=== PATIENT | male | born 1945 | race Caucasian/White ===

== ENCOUNTER 2023-12-28 16:32 | Outpatient (REF) | payer MEDICARE, MEDICAID, SELFPAY ==
--- OUTSIDE RECORDS SUMMARY | 2023-12-28 16:37 | XMS_ITS | Continuity of Care Document ---
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 Name Role Phone Landeros, Nicole Keren Primary Care Physician Encounter [facility] Date(s): 09/19/23 - 09/19/[address] [id number] Encounter Diagnosis Scalp laceration(Discharge Diagnosis) - 09/19/23 Skin tear of forearm without complication(Discharge Diagnosis) - 09/19/23 Discharge Disposition: [facility] Facility Attending Physician: Gato Fan MD Admitting Physician: Gato Fan MD Allergies, Adverse Reactions, Alerts Substance Reaction Severity Status pravastatin Unknown Active Actos Unknown Active Vytorin Unknown Active dilTIAZem Unknown Active Assessment and Plan Extracted from: Title:ED Provider Note Author:Shweta Mijares Ma, MD Date:09/19/23 Assessment/Plan 1.??Scalp laceration??S01.01XA Ordered: Discharge Patient, 09/19/23 13:34:00 EDT, Constant Indicator ?? 2.??Skin tear of forearm without complication??S51.819A Ordered: Discharge Patient, 09/19/23 13:34:00 EDT, Constant Indicator ?? Patient Education Laceration Care, Adult Medications atorvastatin 40 mg oral tablet 40 mg = 1 tab, Oral, every evening, # 30 tab, 0 Refill(s) Start Date: 09/19/23 Status: Ordered ferrous sulfate 325 mg (65 mg elemental iron) oral delayed release tablet 325 mg = 1 tab, Oral, Daily, # 30 tab, 0 Refill(s) Start Date: 09/19/23 Status: Ordered Flomax 0.4 mg oral capsule 0.4 mg = 1 cap, Oral, every night at bedtime, # 30 cap, 0 Refill(s) Start Date: 09/19/23 Status: Ordered HumaLOG 100 units/mL injectable solution See Instructions, sliding scale AC and HS aggressive scale: 50-200 = 2units 210-250- = 4units 251-300 = 6units 301-350 = 8units 351-400 = 10 units, 0 Refill(s) Start Date: 09/19/23 Status: Ordered nitrofurantoin macrocrystals 100 mg oral capsule 100 mg = 1 cap, Oral, BID, # 40 cap, 0 Refill(s) Start Date: 09/19/23 Stop Date: 09/29/23 Status: Ordered ramelteon 8 mg oral tablet 8 mg = 1 tab, Oral, every night at bedtime, 0 Refill(s) Start Date: 09/19/23 Status: Ordered Vital Signs Most recent to oldest [Reference Range]: 1 2 3 Temperature Temporal Artery [36-38 Deg C] 36.9 Deg C (09/19/23 11:05 AM) Peripheral Pulse Rate [60-100 bpm] 66 bpm (09/19/23 1:50 PM) 50 bpm *LOW* (09/19/23 1:24 PM) 55 bpm *LOW* (09/19/23 12:36 PM) Heart Rate Monitored [60-100 bpm] 70 bpm (09/19/23 1:50 PM) 53 bpm *LOW* (09/19/23 1:24 PM) 63 bpm (09/19/23 12:36 PM) Respiratory Rate [12-24 br/min] 20 br/min (09/19/23 1:50 PM) 15 br/min (09/19/23 1:24 PM) 17 br/min (09/19/23 12:36 PM) Blood Pressure [90-140/60-90 mmHg] 148/77mmHg *HI* (09/19/23 1:50 PM) 135/66mmHg (09/19/23 1:24 PM) 156/62mmHg *HI* (09/19/23 12:36 PM) Mean Arterial Pressure, Cuff [65-140 mmHg] 101 mmHg (09/19/23 1:50 PM) 89 mmHg (09/19/23 1:24 PM) 93 mmHg (09/19/23 12:36 PM) Weight 65.5 kg (09/19/23 11:05 AM) Weight Dosing 65.500 kg (09/19/23 11:05 AM) Body Mass Index Estimated 23.21 kg/m2 (09/19/23 11:05 AM) Height/Length Estimated 168 cm (09/19/23 11:05 AM) Social History Social History Type Response Smoking Status Not obtained due to cognitive impairment entered on: 09/19/23 Sex Hospital Discharge Instructions Patient Education 09/19/2023 12:34:29 Laceration Care, Adult Laceration Care, Adult A laceration is a cut that may go through all layers of the skin and into the tissue that is right under the skin. Some lacerations heal on their own. Others need to be closed with stitches (sutures), aleja, skin adhesive strips, or skin glue. Proper care of a laceration reduces the risk for infection, helps the laceration heal better, and may prevent scarring. General tips ??? Keep the wound clean and dry. ??? Do not scratch or pick at the wound. ??? Wash your hands with soap and water for at least 20 seconds before and after touching your wound or changing your bandage (dressing). If soap and water are not available, use hand waste disposal attendant. ??? Do not usedisinfectants or antiseptics, such as rubbing alcohol, to clean your wound unless told by your health care provider. ??? If you were given a dressing, you should change it at least once a day, or as told by your health care provider. You should also change it if it becomes wet or dirty. How to care for your laceration If sutures or aleja were used: ??? Keep the wound completely dry for the first 24 hours, or as told by your health care provider. After that time, you may shower or bathe. Do not soak your wound in water until after the sutures orstaples have been removed. ??? Clean the wound once each day, or as told by your health care provider. To do this: ??? Wash the wound with soap and water. ??? Rinse the wound with water to remove all soap. ??? Pat the wound dry with a clean towel. Do not rub the wound. ??? After cleaning the wound, apply a thin layer of antibiotic ointment, other topical ointments, or a non-adherent dressing as told by your health care provider. This will help prevent infection andkeep the dressing from sticking to the wound. ??? Have the sutures or aleja removed as told by your health care provider. Do not remove suturesor aleja yourself. If skin adhesive strips were used: ??? Do not get the skin adhesive strips wet. You may shower or bathe, but keep the wound dry. ??? If the wound gets wet, pat it dry with a clean towel. Do not rub the wound. ??? Skin adhesive strips fall off on their own. If adhesive strip edges start to loosen and curl up, you may trim the loose edges. Do not remove adhesive strips completely unless your health care provider tells you to do that. If skin glue was used: ??? You may shower or bathe, but try to keep the wound dry. Do not soak the wound in water. ??? After showering or bathing, pat the wound dry with a clean towel. Do not rub the wound. ??? Do not do any activities that will make you sweat a lot until the skin glue has fallen off. ??? Do not apply liquid, cream, or ointment medicine to the wound while the skin glue is in place. Doing this may loosen the film before the wound has healed. ??? If a dressing is placed over the wound, do not apply tape directly over the skin glue. Doing this may cause the glue to be pulled off before the wound has healed. ??? Do not pick at the glue. Skin glue usually remains in place for 5???10 days and then falls off the skin. Follow these instructions at home: Medicines ??? Take mezl-jjm-aayxjnq and prescription medicines only as told by your health care provider. ??? If you were prescribed an antibiotic medicine or ointment, take or apply it as told by your health care provider. Do not stop using it even if your condition improves. Managing pain and swelling ??? If directed, put ice on the injured area. To do this: ??? Put ice in a plastic bag. ??? Place a towel between your skin and the bag. ??? Leave the ice on for 20 minutes, 2???3 times a day. ??? Remove the ice if your skin turns bright red. This is very important. If you cannot feel pain, heat, or cold, you have a greater risk of damage to the area. ??? Raise (elevate) the injured area above the level of your heart while you are sitting or lying down for the first 24???48 hours after the laceration is repaired. General instructions ??? Avoid any activity that could cause your wound to reopen. ??? Check your wound every day for signs of infection. Watch for: ??? More redness, swelling, or pain. ??? Fluid or blood. ??? Warmth. ??? Pus or a bad smell. ??? Keep all follow-up visits. This is important. Contact a health care provider if: ??? You received a tetanus shot and you have swelling, severe pain, redness, or bleeding at the injection site. ??? Your closed wound breaks open. ??? You have any of these signs of infection: ??? More redness, swelling, or pain around your wound. ??? Fluid or blood coming from your wound. ??? Warmth coming from your wound. ??? Pus or a bad smell coming from your wound. ??? A fever. ??? You notice something coming out of the wound, such as wood or glass. ??? Your pain is not controlled with medicine. ??? You notice a change in the color of your skin near your wound. ??? You need to change the dressing often. ??? You develop a new rash. ??? You have numbness around the wound. Get help right away if: ??? You develop severe swelling around the wound. ??? Your pain suddenly increases and is severe. ??? You develop painful lumps near the wound or on skin anywhere else on your body. ??? You have a red streak going away from your wound. ??? The wound is on your hand or foot, and you cannot properly move a finger or toe. ??? The wound is on your hand or foot, and you notice that your fingers or toes look pale or bluish. Summary ??? A laceration is a cut that may go through all layers of the skin and into the tissue that is right under the skin. ??? Some lacerations heal on their own. Others need to be closed with stitches (sutures), aleja, skin adhesive strips, or skin glue. ??? Proper care of a laceration reduces the risk of infection, helps the laceration heal better, and may prevent scarring. This information is not intended to replace advice given to you by your health care provider. Make sure you discuss any questions you have with your health care provider. Document Revised: 06/17/2021 Document Reviewed: 06/17/2021 [employer] Patient Education ?? 2022 [employer]. Pharmacology Progress note * Carmelita James: PERFORM Event Display: Pharmacy Progress Note Authored Date: [id number] Pharmacy Progress Note done by Carmelita James verified with MAR sent from [facility] Pt did have am meds today. thx Carmelita James [facility] Electronically Signed on 09/19/2023 13:27 EDT Carmelita James Physician Emergency department Note * Shweta Mijares MD: PERFORM Event Display: ED Note Physician Authored Date: [id number] SERENE HOLCOMB :1945 Age:78 years Sex:Male Visit Date:09/19/2023 Primary Care Physician: Nicole Landeros NP Basic Information Time Seen: Shweta Mijares MD / 09/19/2023 11:11 Chief Complaint Witnessed fall while attempting to walk outside, poor hisotirna, unsure why he fell. Lac on back ofhead. Paperwork from [facility] pt does no take blood thinners. No c-spine tenderness. [facility] repots A+Ox1 baseline, alert to self and sitation now. History Of Present Illness: This is a 78 year old gentleman??who is a [place] resident??alert and oriented x 1 at baseline,??presents to the ED for evaluation after a fall. ??and now has aPer report the fall was witnessed??by the??staff.?? The patient was attempting to walk outside when he??tripped and fell down??laceration??on the back of his head. The patient does corroborate the story with me,??he says he got up right away with the help of someone. ??He says he walks with a walker??but tells him all the time that he does not needed.?? He is having some??local pain at the site of his laceration, he denies pain anywhere else. ? Physical exam: ?? GEN: well developed and well nourished HEAD: There is a??3 cm??linear laceration over the??occiput EYES: pupils round reactive to light, conjunctiva clear, extraocular movements intact, no raccoons eyes ENT: no fluid in external acoustic canals, no hemotympanum, no england's sign, nares patent, oropharynx clear NECK: no JVD, midline trachea, no cervical spine tenderness,??neck cleared with Nexus criteria HEART: regular rate and rhythm LUNGS: CTAB CHEST: chest wall non-tender, no bruising/deformity ABD: no [place]ard's or Krish's sign, soft, non tender, no rebound or guarding PELVIS: stable to rock BACK: no step offs or deformities, T-L spine non tender : deferred Extremities: There is a skin tear over the left forearm??with multiple bruises,??there is full range of motion actively??without any pain,??though the??extension lacks about 5 degrees.?? There is no tenderness topalpation??over??the other 4 extremities. NEURO: CNII-XII grossly intact, no sensory deficits ? MDM ?? Thorough chart review performed, nursing triage note reviewed, vitals reviewed ?? The patient is well and non toxic appearing with reassuring VS ?? Plan: Imaging, lac??repair ? Imaging results X-ray pelvis without any acute fracture or dislocation X-ray elbow with no acute fracture or dislocation X-ray chest with no acute intrathoracic findings Noncontrast head CT 1.?Age-indeterminate minimally displaced bilateral nasal bone fractures. 2.?No acute intracranial abnormality.? No evidence of recent nasal trauma, the frx are likely chronic.? The laceration over the occiput was closed??using 3 aleja, the patient tolerated the pressure well The patient's pain was controlled with Tylenol ?? Plan to continue Tylenol as an outpatient, staple removal??in 7 to 10 days Discharge instructions and return precautions discussed, all questions answered. Physical Exam Vitals & Measurements T:??36.9?C ??(Temporal Artery)?? HR:??50??(Peripheral)?? HR:??53??(Monitored)?? RR:??15?? BP:??135/66?? SpO2:??100%?? HT:??168??cm?? WT:??65.5??kg?? BMI:??23.21?? Pain Score:??2?? O2 Therapy:??Room air?? Procedure Laceration Repair Staple Closure Procedure Note Location: _Occiput Laceration length/type: _3 cm Staple type/size: _Standard size??3 Number of aleja: _ The wound was cleansed with normal saline irrigation under pressure. Wound exploration reveals no muscle, tendon, nerve injury or foreign body. Wound was repaired under sterile technique with surgical skin aleja. Patient tolerated the procedure well without complications. No Qualifying Data Assessment/Plan 1.??Scalp laceration??S01.01XA Ordered: Discharge Patient, 09/19/23 13:34:00 EDT, Constant Indicator ?? 2.??Skin tear of forearm without complication??S51.819A Ordered: Discharge Patient, 09/19/23 13:34:00 EDT, Constant Indicator ?? Patient Education Laceration Care, Adult Medication Reconciliation Unchanged atorvastatin (atorvastatin 40 mg oral tablet)1 tab Oral (given by mouth) every evening. ?? ferrous sulfate (ferrous sulfate 325 mg (65 mg elemental iron) oral delayed release tablet)1 tab Oral (given by mouth) every day. ?? insulin lispro (HumaLOG 100 units/mL injectable solution)sliding scale AC and HS aggressive scale: 50-200 = 2units 210-250- = 4units 251-300 = 6units 301-350 = 8units 351-400 = 10 units. ?? nitrofurantoin (nitrofurantoin macrocrystals 100 mg oral capsule)1 Capsules Oral (given by mouth) 2times a day for 10 Days. ?? ramelteon (ramelteon 8 mg oral tablet)1 tab Oral (given by mouth) every night at bedtime. ?? tamsulosin (Flomax 0.4 mg oral capsule)1 Capsules Oral (given by mouth) every night at bedtime. Problem List/Past Medical History Ongoing No qualifying data Historical No qualifying data Medication Administration Given acetaminophen, 650 mg, Oral Allergies Actos Vytorin dilTIAZem pravastatin Social History Electronic Cigarette/Vaping Electronic Cigarette Use: Never. Tobacco Not obtained due to cognitive impairment Tobacco Use:. Electronically Signed on 09/19/2023 13:37 EDT Shweta Mijares MD Emergency department Discharge instructions * Shweta Mijares MD: PERFORM Event Display: ED Discharge Information Authored Date: [id number] SERENE HOLCOMB :1945 Age:78 years Sex:Male Visit Date:09/19/2023 Primary Care Physician: Nicole Landeros [facility] [employer] ADMINISTRATOR Discharge Instructions We would like to thank you for allowing us to assist you with your healthcare needs. The following includes patient education materials and information regarding your injury/illness. Diagnosis from Today's Visit Scalp laceration Skin tear of forearm without complication Discharge Vitals Temperature??(Temporal Artery) 98.4 ??F (36.9 ??C) Heart Rate??(Peripheral) 50 Heart Rate??(Monitored) 53 Respiratory Rate?? 15 Blood Pressure?? 135/66?? SpO2?? 100% Height?? 66.14 in (168 cm) Weight?? 144.43 lb (65.5 kg) BMI?? 23.21 Allergies Actos Vytorin dilTIAZem pravastatin What to Do Next Instructions from Your Care Team Please keep area clean and dry at all times. In 24 hours please remove bandage and start cleaning daily with soap and water. Change dressing daily.?? For suture removal, please follow up with your primary care provider or return to the ED in??7-10 days. For your forearm skin tear, please continue usual wound care. Note that scaring is inevitable and can be minimized with avoiding sun exposure. Monitor wound and return to the Emergency Department for any increased redness of the skin around it, warmth of the skin, increased swelling, drainage, increased pain, fever, or any other concern.?? You were treated today on an emergency basis; it may be stephenson to contact your primary care provider to notify them of your visit today. You may have been referred to your regular doctor or a specialist, please follow up as instructed. If your condition worsens or you can't get in to see the doctor, contact the Emergency Department. Medications What How Much When Instructions Next Dose Unchanged atorvastatin (atorvastatin 40 mg oral tablet) 1 tab Oral (given by mouth) Every evening Unchanged ferrous sulfate (ferrous sulfate 325 mg (65 mg elemental iron) oral delayed release tablet) 1 tab Oral (given by mouth) Every day Unchanged insulin lispro (HumaLOG 100 units/ mL injectable solution) See instructions sliding scale AC and HS aggressive scale: 50-200 = 2units 210-250- = 4units 251-300 = 6units 301-350 = 8units 351-400 = 10 units ?? Unchanged nitrofurantoin (nitrofurantoin macrocrystals 100 mg oral capsule) 1 Capsules Oral (given by mouth) 2 times a day Duration: 10 Days Unchanged ramelteon (ramelteon 8 mg oral tablet) 1 tab Oral (given by mouth) Every night at bedtime Unchanged tamsulosin (Flomax 0.4 mg oral capsule) 1 Capsules Oral (given by mouth) Every night at bedtime Education Materials Laceration Care, Adult A laceration is a cut that may go through all layers of the skin and into the tissue that is right under the skin. Some lacerations heal on their own. Others need to be closed with stitches (sutures), aleja, skin adhesive strips, or skin glue. Proper care of a laceration reduces the risk for infection, helps the laceration heal better, and may prevent scarring. General tips ? Keep the wound clean and dry. ? Do not scratch or pick at the wound. ? Wash your hands with soap and water for at least 20 seconds before and after touching your wound orchanging your bandage (dressing). If soap and water are not available, use hand waste disposal attendant. ? Do not usedisinfectants or antiseptics, such as rubbing alcohol, to clean your wound unless told byyour health care provider. ? If you were given a dressing, you should change it at least once a day, or as told by your health care provider. You should also change it if it becomes wet or dirty. How to care for your laceration If sutures or aleja were used: ? Keep the wound completely dry for the first 24 hours, or as told by your health care provider. After that time, you may shower or bathe. Do not soak your wound in water until after the sutures or aleja have been removed. ? Clean the wound once each day, or as told by your health care provider. To do this: ? Wash the wound with soap and water. ? Rinse the wound with water to remove all soap. ? Pat the wound dry with a clean towel. Do not rub the wound. ? After cleaning the wound, apply a thin layer of antibiotic ointment, other topical ointments, or a non-adherent dressing as told by your health care provider. This will help prevent infection and keep the dressing from sticking to the wound. ? Have the sutures or aleja removed as told by your health care provider. Do not remove sutures or aleja yourself. If skin adhesive strips were used: ? Do not get the skin adhesive strips wet. You may shower or bathe, but keep the wound dry. ? If the wound gets wet, pat it dry with a clean towel. Do not rub the wound. ? Skin adhesive strips fall off on their own. If adhesive strip edges start to loosen and curl up, you may trim the loose edges. Do not remove adhesive strips completely unless your health care provider tells you to do that. If skin glue was used: ? You may shower or bathe, but try to keep the wound dry. Do not soak the wound in water. ? After showering or bathing, pat the wound dry with a clean towel. Do not rub the wound. ? Do not do any activities that will make you sweat a lot until the skin glue has fallen off. ? Do not apply liquid, cream, or ointment medicine to the wound while the skin glue is in place. Doing this may loosen the film before the wound has healed. ? If a dressing is placed over the wound, do not apply tape directly over the skin glue. Doing this may cause the glue to be pulled off before the wound has healed. ? Do not pick at the glue. Skin glue usually remains in place for 5???10 days and then falls off the skin. Follow these instructions at home: Medicines ? Take viml-rbw-kuezrsc and prescription medicines only as told by your health care provider. ? If you were prescribed an antibiotic medicine or ointment, take or apply it as told by your health care provider. Do not stop using it even if your condition improves. Managing pain and swelling ? If directed, put ice on the injured area. To do this: ? Put ice in a plastic bag. ? Place a towel between your skin and the bag. ? Leave the ice on for 20 minutes, 2???3 times a day. ? Remove the ice if your skin turns bright red. This is very important. If you cannot feel pain, heat, or cold, you have a greater risk of damage to the area. ? Raise (elevate) the injured area above the level of your heart while you are sitting or lying down for the first 24???48 hours after the laceration is repaired. General instructions ? Avoid any activity that could cause your wound to reopen. ? Check your wound every day for signs of infection. Watch for: ? More redness, swelling, or pain. ? Fluid or blood. ? Warmth. ? Pus or a bad smell. ? Keep all follow-up visits. This is important. Contact a health care provider if: ? You received a tetanus shot and you have swelling, severe pain, redness, or bleeding at the injection site. ? Your closed wound breaks open. ? You have any of these signs of infection: ? More redness, swelling, or pain around your wound. ? Fluid or blood coming from your wound. ? Warmth coming from your wound. ? Pus or a bad smell coming from your wound. ? A fever. ? You notice something coming out of the wound, such as wood or glass. ? Your pain is not controlled with medicine. ? You notice a change in the color of your skin near your wound. ? You need to change the dressing often. ? You develop a new rash. ? You have numbness around the wound. Get help right away if: ? You develop severe swelling around the wound. ? Your pain suddenly increases and is severe. ? You develop painful lumps near the wound or on skin anywhere else on your body. ? You have a red streak going away from your wound. ? The wound is on your hand or foot, and you cannot properly move a finger or toe. ? The wound is on your hand or foot, and you notice that your fingers or toes look pale or bluish. Summary ? A laceration is a cut that may go through all layers of the skin and into the tissue that is right under the skin. ? Some lacerations heal on their own. Others need to be closed with stitches (sutures), aleja, skinadhesive strips, or skin glue. ? Proper care of a laceration reduces the risk of infection, helps the laceration heal better, and may prevent scarring. This information is not intended to replace advice given to you by your health care provider. Make sure you discuss any questions you have with your health care provider. Document Revised: 06/17/2021 Document Reviewed: 06/17/2021 Elsevier Patient Education ?? 2022 [employer] Patient/Health Unit Clerk Signature Patient Name:SERENE HOLCOMB I have received this information and my questions have been answered. Patient/Health Unit Clerk Name: Patient/Health Unit Clerk Signature: Relationship to Patient: Witness Name/Signature: Date: Electronically Signed on: 09/19/2023 13:35 EDTSigned by:[facility] Emergency department Note * Shilpa Cai P: PERFORM Event Display: ED Notes Authored Date: [id number] * Shilpa Cai P: PERFORM Event Display: ED Notes Authored Date: [id number] Patient Care team information Care Team Personnel Name: Nicole Landeros NP Position: No Access Member Role: Primary Care Physician Address: Address: [address] Care Team Related Persons Name: POLINA HOLCOMB
[2023-12-28 16:55] LABS: Abs Immature Grans 0.02 10^3/uL (0.0-0.06); Absolute Basophil Count 0.05 10^3/uL (0.0-0.2); Absolute Eosinophil Count 0.14 10^3/uL (0.0-0.7); Absolute Lymphocyte Count 1.68 10^3/uL (1.2-3.4); Absolute Monocyte Count 0.49 10^3/uL (0.1-0.8); Absolute Neutrophil Count 2.81 10^3/uL (1.2-6.7); Eosinophils % 2.7 %; HCT 36.2 % (40.0-50.0); Immature Grans % 0.4 %; Lymphocytes % 32.4 %; MCH 27.7 pg (27.0-33.0); MCHC 33.1 % (32.0-36.0); MCV 84 fL (80-95); MPV 10.4 fL (8.0-11.0); Monocytes % 9.4 %; Neutrophils % 54.1 %; Platelet Count 313 10^3/uL (130-400); RBC 4.33 10^6/uL (4.36-5.78); RDW 13.2 % (11.8-14.1); RDW-SD 40.4 fL; WBC 5.19 10^3/uL (4.4-10.8)
[2023-12-28 16:57] LABS: Anion Gap 6.8 mmol/L (3-11); BUN 22 mg/dL (7-18); CO2 31.2 mmol/L (21.0-32.0); CREATININE 1.2 mg/dL (0.70-1.30); Calcium 9.1 mg/dL (8.5-10.1); Chloride 101 mmol/L (98-107); Estimated GFR 62.67 (mL/min/1.73m2); Glucose 139 mg/dL (74-106); Potassium 4.6 mmol/L (3.5-5.1); Sodium 139 mmol/L (136-145)
== END 2023-12-28 16:33 | disposition home or self-care (01) ==
LOC: LBN 16:32
PROVIDERS: Visit Provider Family Medicine
DX: E87.5 Hyperkalemia (principal); E11.8 Type 2 diabetes mellitus with unspecified complications; E43 Unspecified severe protein-calorie malnutrition
CPT/HCPCS: 80048; 85025

== ENCOUNTER 2024-02-22 12:19 | Outpatient (REF) | payer MEDICARE, MEDICAID, SELFPAY ==
[2024-02-22 13:00] LABS: Abs Immature Grans 0.01 10^3/uL (0.0-0.06); Absolute Basophil Count 0.03 10^3/uL (0.0-0.2); Absolute Eosinophil Count 0.12 10^3/uL (0.0-0.7); Absolute Lymphocyte Count 1.15 10^3/uL (1.2-3.4); Absolute Monocyte Count 0.33 10^3/uL (0.1-0.8); Absolute Neutrophil Count 4.28 10^3/uL (1.2-6.7); Basophils % 0.5 %; HCT 39.8 % (40.0-50.0); HGB 13.3 g/dL (13.5-17.5); Immature Grans % 0.2 %; Lymphocytes % 19.4 %; MCH 28.4 pg (27.0-33.0); MCHC 33.4 % (32.0-36.0); MCV 85 fL (80-95); MPV 10.7 fL (8.0-11.0); Monocytes % 5.6 %; Neutrophils % 72.3 %; Platelet Count 213 10^3/uL (130-400); RBC 4.69 10^6/uL (4.36-5.78); RDW 13.9 % (11.8-14.1); RDW-SD 42.6 fL; WBC 5.92 10^3/uL (4.4-10.8)
[2024-02-22 13:11] LABS: ALT 53 U/L (16-63); AST 29 U/L (15-37); Albumin 3.5 g/dL (3.4-5.0); Alkaline Phosphatase 99 U/L (46-116); Anion Gap 13.5 mmol/L (3-11); BUN 27 mg/dL (7-18); CO2 25.5 mmol/L (21.0-32.0); CREATININE 1.5 mg/dL (0.70-1.30); Calcium 8.9 mg/dL (8.5-10.1); Chloride 104 mmol/L (98-107); Estimated GFR 47.95 (mL/min/1.73m2); Glucose 444 mg/dL (74-106); Potassium 4.9 mmol/L (3.5-5.1); Sodium 143 mmol/L (136-145); Total Protein 7.1 g/dL (6.4-8.2)
[2024-02-22 22:15] LABS: Estimated Average Glucose 214 mg/dL; Hemoglobin A1C 9.1 % (<5.7)
== END 2024-02-22 12:20 | disposition home or self-care (01) ==
LOC: LBN 12:19
PROVIDERS: Visit Provider Family Medicine
DX: E11.8 Type 2 diabetes mellitus with unspecified complications (principal); M62.81 Muscle weakness (generalized); E87.5 Hyperkalemia
CPT/HCPCS: 80053; 83036; 85025

== ENCOUNTER 2024-04-08 10:20 | Emergency (ER) | payer MEDICARE, MEDICAID, SELFPAY ==
[2024-04-08 10:29] VITALS: BP 149/74; PULSE 80; RESP 20; TEMP 36.9; O2SAT 98
[2024-04-08 10:40] VITALS: BP 149/74; PULSE 80; RESP 20; TEMP 36.9; O2SAT 98
--- NOTE | 2024-04-08 10:45 | RT.EKG_ITS ---
APPROVED REPORT Exam: Resting ECG Reason for Exam: [facility] Patient Location: E HR:69 bpm ECG Measurements Heart Rate 69 AXIS CO 185 P 26 QRSd 87 QRS 5 QT 391 T 36 QTc 420 Conclusion Sinus rhythm...normal P axis, V-rate 60- 99 I have reviewed and interpreted ECG and agree with software generated interpretation.
[2024-04-08 11:05] LABS: BE (Venous) 6 mmol/L (-2-3); HCO3 (Venous) 32 mmol/L (23-28); O2 Sat (Venous) 64 %; TCO2 (Venous) 29 mmol/L (24-29); pCO2 (Venous) 55 mmHg (41-51); pH (Venous) 7.37 (7.31-7.41); pO2 (Venous) 35 mmHg
[2024-04-08 11:06] LABS: Abs Immature Grans 0.02 10^3/uL (0.0-0.06); Absolute Basophil Count 0.04 10^3/uL (0.0-0.2); Absolute Eosinophil Count 0.11 10^3/uL (0.0-0.7); Absolute Lymphocyte Count 1.08 10^3/uL (1.2-3.4); Absolute Monocyte Count 0.41 10^3/uL (0.1-0.8); Absolute Neutrophil Count 4.75 10^3/uL (1.2-6.7); Basophils % 0.6 %; Eosinophils % 1.7 %; HCT 42.9 % (40.0-50.0); Immature Grans % 0.3 %; Lymphocytes % 16.8 %; MCH 28.1 pg (27.0-33.0); MCHC 32.6 % (32.0-36.0); MCV 86 fL (80-95); MPV 9.6 fL (8.0-11.0); Monocytes % 6.4 %; Neutrophils % 74.2 %; Platelet Count 296 10^3/uL (130-400); RBC 4.99 10^6/uL (4.36-5.78); RDW 13.2 % (11.8-14.1); RDW-SD 40.8 fL; WBC 6.41 10^3/uL (4.4-10.8)
[2024-04-08 11:11] VITALS: RESP 14
[2024-04-08] MEDS: LORazepam 1 MG TAB PO (11:24)
[2024-04-08] MEDS: OLANZapine ODT 5 MG TAB PO (11:24)
[2024-04-08 11:27] LABS: ALT 26 U/L (16-63); AST 17 U/L (15-37); Albumin 3.4 g/dL (3.4-5.0); Alkaline Phosphatase 109 U/L (46-116); Anion Gap 9.5 mmol/L (3-11); BUN 20 mg/dL (7-18); Bilirubin, Total 0.77 mg/dL (0.2-1.0); CO2 31.5 mmol/L (21.0-32.0); CREATININE 1.4 mg/dL (0.70-1.30); Calcium 9.5 mg/dL (8.5-10.1); Chloride 98 mmol/L (98-107); Estimated GFR 52.09 (mL/min/1.73m2); Glucose 443 mg/dL (74-106); Potassium 4.4 mmol/L (3.5-5.1); Sodium 139 mmol/L (136-145); Total Protein 8.3 g/dL (6.4-8.2)
[2024-04-08 11:37] LABS: TSH (W/Ref FT4) 3.87 uIU/mL (0.36-3.74)
[2024-04-08 11:45] VITALS: BP 126/88; PULSE 76; RESP 20; O2SAT 100
[2024-04-08 12:41] LABS: Bilirubin Negative (Negative); Blood Negative (Negative); Clarity Clear (Clear); Glucose >=1000 mg/dL (Negative); Ketones 15 mg/dL (Negative); Leukocyte Esterase Negative (Negative); Nitrite Negative (Negative); Specific Gravity 1.015 (1.005-1.025); Urobilinogen 0.2 mg/dL (Up to 0.2); pH 6.5 (5-8)
[2024-04-08] MEDS: Insulin REGULAR-Human 100 UNITS/ML UNIT 10 UNITS SC (13:23)
[2024-04-08 13:33] LABS: Bacteria Few HPF (Negative); C & S Indicated? No; Casts Negative LPF (Negative); Crystals Negative HPF (Negative); Epithelial Cells Moderate HPF (Negative); Mucus Negative (Negative); Other Cells Negative (Negative); RBC 0-2 HPF (0-2); WBC 0-2 HPF (0-5)
[2024-04-08 15:23] VITALS: BP 158/68; PULSE 67; RESP 16; O2SAT 99
--- NOTE | 2024-04-08 15:30 | ED.GENADUL_ITS ---
Discharge Plan Disposition Patient Disposition: Senior Living Facility(SNF) Condition: Stable Discharge Details Clinical Impression: Dementia Primary Care Provider: Kat Blankenship ED Provider: Jagjit Small Home Meds and New Rx's Prescriptions: New olanzapine 5 mg tablet 5 mg PO DAILY 30 Days Qty: 30 0RF Continued bisacodyl [Dulcolax (bisacodyl)] 10 mg suppository 10 mg [place] DAILY PRN insulin glargine [Basaglar KwikPen U-100 Insulin] 100 unit/mL (3 mL) insulin pen 25 unit subcut DAILY insulin lispro [Admelog SoloStar U-100 Insulin] 100 unit/mL insulin pen 1 sliding scale dose subcut USEASDIRECTD Rx Instructions: SS before meals 200-249=3U, 250-299=5u,300-349=7U,350-400=9u,401-500=11u contact MD if glucose higher than 500. mirtazapine 30 mg tablet,disintegrating 30 mg PO QHS Discharge Instructions Instructions: Dementia (including Alzheimer disease), Olanzapine Additional Instructions: You were seen in the emergency department for agitated dementia. We found no reason to keep your transfer to a psychiatric facility, we are [facility] and recommend that you take 1 tablet of medication called olanzapine that we gave you here that seem to help with your symptoms, I would encourage you to continue taking your insulin as you have high blood sugar without evidence of diabetic ketoacidosis today. Please do not hesitate to return to the emergency department with any emergent concerns. Referrals: Kat Blankenship [Primary Care Provider] - Discharge Data Discharge Date/Time-TO BE ENTERED AT DEPARTURE: 04/08/24 17:23 HPI General Date/Time Provider Initiated Documentation: 04/08/24 10:30 . HPI Narrative: This 78-year-old male presents with report of just homicidal ideation from the snf. He reportedly was making threatening statements when they tried to change his clothing today. Patient has a known history of dementia and diabetes but has been refusing his medications at home. Patient is unable to give me any history but denies any pain complaints. History is obtained from police and snf. Related Data Home Medications ?Medication ?Instructions ?Recorded ?Confirmed bisacodyl 10 mg rectal suppository 10 mg [place] DAILY PRN 04/08/24 04/08/24 (Dulcolax (bisacodyl)) insulin glargine 100 unit/mL (3 25 unit subcut DAILY 04/08/24 04/08/24 mL) subcutaneous pen (Basaglar KwikPen U-100 Insulin) insulin lispro 100 unit/mL 1 sliding scale dose subcut 04/08/24 04/08/24 subcutaneous pen (Admelog SoloStar USEASDIRECTD U-100 Insulin lispro) mirtazapine 30 mg disintegrating 30 mg PO QHS 04/08/24 04/08/24 tablet olanzapine 5 mg tablet 5 mg PO DAILY agitation 30 days 04/08/24 #30 tabs Previous Rx's ?Medication ?Instructions ?Recorded olanzapine 5 mg tablet 5 mg PO DAILY agitation 30 days 04/08/24 #30 tabs Allergies Allergy/AdvReac Type Severity Reaction Status Date / Time diltiazem Allergy Unknown Unknown Verified 04/08/24 10:46 ezetimibe (From Vytorin) Allergy Unknown Unknown Verified 04/08/24 10:46 pioglitazone (From Actos) Allergy Unknown Unknown Verified 04/08/24 10:46 pravastatin Allergy Unknown Unknown Verified 04/08/24 10:46 simvastatin (From Vytorin) Allergy Unknown Unknown Verified 04/08/24 10:46 General Stated Complaint: GenMedical HEIDI: 3 Exam Narrative Exam Narrative: Alert and oriented 78-year-old male presenting confused no visible sign of trauma, pupils equal round reactive to light and accommodation, lungs clear to auscultation, cardiac rate rhythm regular, no abdominal tenderness, ambulatory around room with steady gait, tangential, perseverating, 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 continuously of 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 war experiences, legs with excoriations and erythema, warm to touch, no drainage, venous stasis Course Vital Signs Vital signs: Vital Signs Temperature 36.9 C 04/08/24 10:29 Pulse 80 04/08/24 10:29 Respiratory Rate 20 04/08/24 10:29 Blood Pressure 149/74 H 04/08/24 10:29 Pulse Oximetry 98 04/08/24 10:29 Temperature 36.9 C 04/08/24 10:40 Temperature Source Temporal Artery Scan 04/08/24 10:40 Pulse 67 04/08/24 15:23 Respiratory Rate 16 04/08/24 15:23 Respiratory Effort Normal, Non-Labored 04/08/24 11:11 Respiratory Depth Normal 04/08/24 11:11 Respiratory Pattern Normal 04/08/24 11:11 Blood Pressure 158/68 H 04/08/24 15:23 Blood Pressure Position Sitting 04/08/24 10:40 Pulse Oximetry 99 04/08/24 15:23 Oxygen Delivery Method Room Air 04/08/24 15:23 Oxygen Flow Rate 0 04/08/24 15:23 Pain Level 0 04/08/24 10:40 Lab/Test Results Lab/Test Results: Laboratory Tests Range/Units 04/08/24 04/08/24 10:59 12:29 WBC (4.4-10.8) 10^3/uL 6.41 RBC (4.36-5.78) 10^6/uL 4.99 Hgb (13.5-17.5) g/dL 14.0 Hct (40.0-50.0) % 42.9 MCV (80-95) fL 86 MCH (27.0-33.0) pg 28.1 MCHC (32.0-36.0) % 32.6 RDW (11.8-14.1) % 13.2 Plt Count (130-400) 10^3/uL 296 MPV (8.0-11.0) fL 9.6 Immature Gran % % 0.3 Neutrophils % % 74.2 Lymphocytes % % 16.8 Monocytes % % 6.4 Eosinophils % % 1.7 Basophils % % 0.6 Nucleated RBC % (0.0-0.3) % 0.0 Absolute Neutrophils (1.2-6.7) 10^3/uL 4.75 Absolute Lymphocytes (1.2-3.4) 10^3/uL 1.08 L Absolute Monocytes (0.1-0.8) 10^3/uL 0.41 Absolute Eosinophils (0.0-0.7) 10^3/uL 0.11 Absolute Basophils (0.0-0.2) 10^3/uL 0.04 VBG pH (7.31-7.41) 7.37 VBG pCO2 (41-51) mmHg 55 H VBG pO2 mmHg 35 VBG HCO3 (23-28) mmol/L 32 H VBG Total CO2 (24-29) mmol/L 29 VBG O2 Saturation % 64 VBG Base Excess (-2-3) mmol/L 6 H Sodium (136-145) mmol/L 139 Potassium (3.5-5.1) mmol/L 4.4 Chloride (98-107) mmol/L 98 Carbon Dioxide (21.0-32.0) mmol/L 31.5 Anion Gap (3-11) mmol/L 9.5 BUN (7-18) mg/dL 20 H Creatinine (0.70-1.30) mg/dL 1.4 H Est GFR (CKD-EPI 2020) (mL/min/1.73m2) 52.09 Glucose (74-106) mg/dL 443 H Calcium (8.5-10.1) mg/dL 9.5 Total Bilirubin (0.2-1.0) mg/dL 0.77 AST (15-37) U/L 17 ALT (16-63) U/L 26 Alkaline Phosphatase (46-116) U/L 109 Total Protein (6.4-8.2) g/dL 8.3 H Albumin (3.4-5.0) g/dL 3.4 TSH (0.36-3.74) uIU/mL 3.87 H Free T4 (0.76-1.46) ng/dL 0.90 Urine Color (Yellow) Yellow Urine Clarity (Clear) Clear Urine pH (5-8) 6.5 Ur Specific [place] (1.005-1.025) 1.015 Urine Protein (Neg-Trace) mg/dL 30 H Urine Ketones (Negative) mg/dL 15 H Urine Blood (Negative) Negative Urine Nitrite (Negative) Negative Urine Bilirubin (Negative) Negative Urine Urobilinogen (Up to 0.2) mg/dL 0.2 Ur Leukocyte Esterase (Negative) Negative Urine RBC (0-2) HPF 0-2 Urine WBC (0-5) HPF 0-2 Ur Epithelial Cells (Negative) HPF Moderate Urine Crystals (Negative) HPF Negative Urine Bacteria (Negative) HPF Few Urine Casts (Negative) LPF Negative Urine Mucus (Negative) Negative Urine Other (Negative) Negative Ur Culture Indicated? No Urine Glucose (Negative) mg/dL >=1000 H Medical Decision Making 78-year-old male presenting slightly agitated but redirectable alert, given Zyprexa and Ativan secondary to mild agitation, no homicidality or suicidality during today's presentation. EKG and diagnostic blood work including urinalysis do not show evidence of acute abnormality. I see no clear obvious infectious etiology of patient's complaints his advance directives indicate that he wants comfort focused treatment only and no antibiotics. I spoke with Catherine watson nt's niece after calling [facility] who did not return the phone call and at this time we will abide by patient's advanced directive wishes. Patient is pending [facility] human services assessment. I feel like patient would benefit from a psychiatric assessment for medication control should he need it secondary to agitation with advancing dementia however at time of my assessment patient is not endorsing suicidality or homicidality I think is stable for return to the skilled rehabilitation center. Patient's blood sugar is elevated, reportedly been refusing his insulin for 7 days which technically is his right. He was amenable to insulin here in the emergency department and we did give 10 units. Blood sugars 338 reassessment. There is no evidence of DKA and I see no clear indication to give additional insulin at this time. Care will be transitioned pending disposition and likely return to rehabilitation center after mental health consultation. Quality:SDOH Health Related Social Needs: No Data to Display PFSH All Active Problems (Updated 04/08/24 @ 16:49 by MYRANDA Richardson) Dementia (Chronic) Social History Smoking risk assessment performed?: No Details: Pt unable to answer above questions at this time 04/08/24 Do you feel safe at home: Yes Do you feel safe in your relationship?: Yes
[2024-04-08 15:57] VITALS: RESP 16
--- NOTE | 2024-04-08 16:46 | ED.PROG_ITS ---
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 Not in DKA today. Medical Records Medical records reviewed: Yes I reviewed the patient's medical records. Lab Data Lab results reviewed: Yes I reviewed the patient's lab results. Labs: Laboratory Tests Range/Units 04/08/24 04/08/24 10:59 12:29 WBC (4.4-10.8) 10^3/uL 6.41 RBC (4.36-5.78) 10^6/uL 4.99 Hgb (13.5-17.5) g/dL 14.0 Hct (40.0-50.0) % 42.9 MCV (80-95) fL 86 MCH (27.0-33.0) pg 28.1 MCHC (32.0-36.0) % 32.6 RDW (11.8-14.1) % 13.2 Plt Count (130-400) 10^3/uL 296 MPV (8.0-11.0) fL 9.6 Immature Gran % % 0.3 Neutrophils % % 74.2 Lymphocytes % % 16.8 Monocytes % % 6.4 Eosinophils % % 1.7 Basophils % % 0.6 Nucleated RBC % (0.0-0.3) % 0.0 Absolute Neutrophils (1.2-6.7) 10^3/uL 4.75 Absolute Lymphocytes (1.2-3.4) 10^3/uL 1.08 L Absolute Monocytes (0.1-0.8) 10^3/uL 0.41 Absolute Eosinophils (0.0-0.7) 10^3/uL 0.11 Absolute Basophils (0.0-0.2) 10^3/uL 0.04 VBG pH (7.31-7.41) 7.37 VBG pCO2 (41-51) mmHg 55 H VBG pO2 mmHg 35 VBG HCO3 (23-28) mmol/L 32 H VBG Total CO2 (24-29) mmol/L 29 VBG O2 Saturation % 64 VBG Base Excess (-2-3) mmol/L 6 H Sodium (136-145) mmol/L 139 Potassium (3.5-5.1) mmol/L 4.4 Chloride (98-107) mmol/L 98 Carbon Dioxide (21.0-32.0) mmol/L 31.5 Anion Gap (3-11) mmol/L 9.5 BUN (7-18) mg/dL 20 H Creatinine (0.70-1.30) mg/dL 1.4 H Est GFR (CKD-EPI 2020) (mL/min/1.73m2) 52.09 Glucose (74-106) mg/dL 443 H Calcium (8.5-10.1) mg/dL 9.5 Total Bilirubin (0.2-1.0) mg/dL 0.77 AST (15-37) U/L 17 ALT (16-63) U/L 26 Alkaline Phosphatase (46-116) U/L 109 Total Protein (6.4-8.2) g/dL 8.3 H Albumin (3.4-5.0) g/dL 3.4 TSH (0.36-3.74) uIU/mL 3.87 H Free T4 (0.76-1.46) ng/dL 0.90 Urine Color (Yellow) Yellow Urine Clarity (Clear) Clear Urine pH (5-8) 6.5 Ur Specific [place] (1.005-1.025) 1.015 Urine Protein (Neg-Trace) mg/dL 30 H Urine Ketones (Negative) mg/dL 15 H Urine Blood (Negative) Negative Urine Nitrite (Negative) Negative Urine Bilirubin (Negative) Negative Urine Urobilinogen (Up to 0.2) mg/dL 0.2 Ur Leukocyte Esterase (Negative) Negative Urine RBC (0-2) HPF 0-2 Urine WBC (0-5) HPF 0-2 Ur Epithelial Cells (Negative) HPF Moderate Urine Crystals (Negative) HPF Negative Urine Bacteria (Negative) HPF Few Urine Casts (Negative) LPF Negative Urine Mucus (Negative) Negative Urine Other (Negative) Negative Ur Culture Indicated? No Urine Glucose (Negative) mg/dL >=1000 H Quality:SDOH Health Related Social Needs: No Data to Display Discharge Plan Disposition Patient Disposition: [facility]) Condition: Stable Discharge Details Clinical Impression: Dementia Primary Care Provider: Kat Blankenship ED Provider: Jagjit Small Home Meds and New Rx's Prescriptions: New olanzapine 5 mg tablet 5 mg PO DAILY 30 Days Qty: 30 0RF Continued bisacodyl [Dulcolax (bisacodyl)] 10 mg suppository 10 mg [place] DAILY PRN insulin glargine [Basaglar KwikPen U-100 Insulin] 100 unit/mL (3 mL) insulin pen 25 unit subcut DAILY insulin lispro [Admelog SoloStar U-100 Insulin] 100 unit/mL insulin pen 1 sliding scale dose subcut USEASDIRECTD Rx Instructions: SS before meals 200-249=3U, 250-299=5u,300-349=7U,350-400=9u,401-500=11u contact MD if glucose higher than 500. mirtazapine 30 mg tablet,disintegrating 30 mg PO QHS Discharge Instructions Instructions: Dementia (including Alzheimer disease), Olanzapine Additional Instructions: You were seen in the emergency department for agitated dementia. We found no reason to keep your transfer to a psychiatric facility, we are [facility] to [facility] and recommend that you take 1 tablet of medication called olanzapine that we gave you here that seem to help with your symptoms, I would encourage you to continue taking your insulin as you have high blood sugar without evidence of diabetic ketoacidosis today. Please do not hesitate to return to the emergency department with any emergent concerns. Referrals: Kat Blankenship [Primary Care Provider] - Discharge Data Discharge Date/Time-TO BE ENTERED AT DEPARTURE: 04/08/24 17:23
== END 2024-04-08 17:23 | disposition skilled nursing facility (03) ==
PROVIDERS: Physician Assistant; Emergency Provider Physician Assistant; PCP Family Medicine
DX: F03.911 Unspecified dementia, unspecified severity, with agitation (principal); E11.65 Type 2 diabetes mellitus with hyperglycemia; Z79.4 Long term (current) use of insulin
CPT/HCPCS: 00123; 36415; 80053; 82805; 82962; 93005; 99284; 81003; 81015; 84439; 84443; 85025; 93010; J1815

== ENCOUNTER 2024-04-10 16:40 | Emergency (ER) | payer MEDICARE, MEDICAID, SELFPAY ==
--- NOTE | 2024-04-10 16:30 | DI.CT_ITS ---
Exam(s) CT HEAD CERVICAL SPINE WO EXAM: CT HEAD CERVICAL SPINE WO CLINICAL HISTORY: fall, hit head. TECHNIQUE: Imaging Protocol: Axial computed tomography images with coronal and sagittal reformatted images were created and reviewed COMPARISON: No exams were available for comparison FINDINGS: BRAIN: There are no skull fractures nor fluid in the visualized paranasal sinuses. In the intracranial compartment there is abnormal asymmetric hypodensity in the right frontal lobe co nsistent with prior infarct. No mass effect nor shift of midline structures. Also evidence of previ ous infarct in the anterior aspect of the left occipital lobe. In the right middle cranial fossa there is some increased density peripherally. However, this is pro bably artifact and there is mild movement tear. CERVICAL SPINE: There is no evidence of fracture nor listhesis. No significant prevertebral soft tissue swelling. There is chronic disc space narrowing at C5-6 level as well as anterior osseous lipping at this level . Posterior bony ridging also noted at this level. Other disc spaces exhibit normal height. There are no obvious degenerative changes in the facet joints. There is no significant facet joint malalignment. No significant osseous lesions evident. 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 No skull fractures. No evidence of cervical spine fracture, malalignment, nor acute compromise of the cervical spinal can al. Chronic degenerative disc disease C5-6 level RADIATION DOSE DELIVERED: 1,181.49mGy.cm Total DLP DATA REPOSITORY: All CT scans at this facility are submitted to the National Radiology Data Registry (NRDR) Dose Index Registry (DIR) with the [employer] ([employer]). RADIATION OPTIMIZATION: All CT scans at this facility use at least one of these dose optimization te chniques: automated exposure control; mA and/or kV adjustment per patient size (includes targeted exa ms where dose is matched to clinical indication); or iterative reconstruction.
[2024-04-10 16:38] VITALS: BP 205/43; PULSE 66; RESP 14; TEMP 36.6; O2SAT 99
--- NOTE | 2024-04-10 17:21 | W.ED.GENAD ---
Discharge Plan Disposition Patient Disposition: Home Condition: Good Discharge Details Clinical Impression: Fall Primary Care Provider: Kat Blankenship ED Provider: Jagjit Duarte Home Meds and New Rx's Prescriptions: No Action bisacodyl [Dulcolax (bisacodyl)] 10 mg suppository 10 mg PA DAILY PRN insulin glargine [Basaglar KwikPen U-100 Insulin] 100 unit/mL (3 mL) insulin pen 25 unit subcut DAILY insulin lispro [Admelog SoloStar U-100 Insulin] 100 unit/mL insulin pen 1 sliding scale dose subcut USEASDIRECTD Rx Instructions: SS before meals 200-249=3U, 250-299=5u,300-349=7U,350-400=9u,401-500=11u contact MD if glucose higher than 500. mirtazapine 30 mg tablet,disintegrating 30 mg PO QHS olanzapine 5 mg tablet 5 mg PO DAILY 30 Days Qty: 30 0RF Discharge Instructions Additional Instructions: At this time there is no evidence of bleeds, fractures, or strokes on your CAT scan. If you notice any worsening of your symptoms, or any new symptoms such as vomiting, diarrhea, fever, chills, shortness of breath, chest pain, numbness, weakness, or fainting , please return immediately to the emergency department for reevaluation. Please follow up with your primary care provider as soon as possible for reassessment and reevaluation. As always, it was a pleasure participating in your medical care today. Referrals: Kat Blankenship [Primary Care Provider] - [facility] General Date/Time Provider Initiated Documentation: 04/10/24 16:42. HPI Narrative: 78-year-old male with past medical history of diabetes, confusion and dementia, who thinks that ?World War II? is still happening, [facility], presents today for evaluation after fall. About 2 to 3 hours ago patient had a fall. It is believed that he hit the back of his head. He had no loss of consciousness. He developed a small scrape on his right hand. He was brought to the ER for further assessment. Patient has no complaints whatsoever. He is concerned about the potential [place] invasion at this point, but makes no complaints of chest pain, headache, neck pain, numbness tingling or weakness. Related Data Home Medications ?Medication ?Instructions ?Recorded ?Confirmed bisacodyl 10 mg rectal suppository 10 mg PA DAILY PRN 04/08/24 04/10/24 (Dulcolax (bisacodyl)) insulin glargine 100 unit/mL (3 25 unit subcut DAILY 04/08/24 04/10/24 mL) subcutaneous pen (Basaglar KwikPen U-100 Insulin) insulin lispro 100 unit/mL 1 sliding scale dose subcut 04/08/24 04/10/24 subcutaneous pen (elog SoloStar USEASDIRECTD U-100 Insulin lispro) mirtazapine 30 mg disintegrating 30 mg PO QHS 04/08/24 04/10/24 tablet olanzapine 5 mg tablet 5 mg PO DAILY agitation 30 days 04/08/24 04/10/24 #30 tabs Previous Rx's ?Medication ?Instructions ?Recorded olanzapine 5 mg tablet 5 mg PO DAILY agitation 30 days 04/08/24 #30 tabs Allergies Allergy/AdvReac Type Severity Reaction Status Date / Time diltiazem Allergy Unknown Unknown Verified 04/10/24 16:46 ezetimibe (From Vytorin) Allergy Unknown Unknown Verified 04/10/24 16:46 pioglitazone (From Actos) Allergy Unknown Unknown Verified 04/10/24 16:46 pravastatin Allergy Unknown Unknown Verified 04/10/24 16:46 simvastatin (From Vytorin) Allergy Unknown Unknown Verified 04/10/24 16:46 General Stated Complaint: Fall/Non TraumaCriteria HEIDI: 3 Exam Narrative Exam Narrative: 1.Const: Well-nourished, Well-developed, appearing stated age 2.Eyes: PERRL, no conjunctival injection, and symmetrical lids. 3.ENT: Atraumatic external nose and ears. Moist MM. Neck: Symmetric, trachea midline, No thyromegaly. There is no evidence of raccoon eyes, [place] sign, CSF rhinorrhea, mastoid tenderness, cranial crepitus, hemotympanum, exophthalmos, or hyphema. Patient demonstrates intact dentition with no signs of tooth avulsion or fracture, no signs of jaw deformity, no evidence of a LeFort's fracture, with an intact palate, nose and orbital region. There is no evidence of a nasal septal hematoma. No proptosis. Jaw closes symmetrically. Airway is clear. 4.CVS: +S1/S2, Peripheral pulses 2+ and equal in all extremities. Brisk capillary refill in all extremities. 5.RESP: Unlabored respiratory effort. Clear to auscultation bilaterally. No wheezes rales or rhonchi 6.GI: Soft, Nontender/Nondistended, No hepatosplenomegaly. No guarding or rebound. 7.MSK: Normocephalic/Atraumatic, Extremities w/o deformity or ttp No cyanosis or clubbing, Normal movement of all extremities 8.Skin: Warm, Dry. No rashes or lesions. 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 Sensation grossly intact, no focal neurologic deficits. 10.Psych: (AAO) x0. Appropriate mood and affect Course Vital Signs Vital signs: Vital Signs Temperature 36.6 C 04/10/24 16:38 Pulse 66 04/10/24 16:38 Respiratory Rate 14 04/10/24 16:38 Blood Pressure 205/43 H 04/10/24 16:38 Pulse Oximetry 99 04/10/24 16:38 Temperature 36.6 C 04/10/24 16:38 Temperature Source Oral 04/10/24 16:38 Pulse 66 04/10/24 16:38 Respiratory Rate 14 04/10/24 16:38 Blood Pressure 205/43 H 04/10/24 16:38 Blood Pressure Position Supine 04/10/24 16:38 Pulse Oximetry 99 04/10/24 16:38 Oxygen Delivery Method Room Air 04/10/24 16:38 Oxygen Flow Rate 0 04/10/24 16:38 Pain Level 0 04/10/24 16:38 Medical Decision Making 78-year-old male with past medical history of diabetes, confusion and dementia, who thinks that ?World War II? is still happening, who [facility], presents today for evaluation after fall. About 2 to 3 hours ago patient had a fall. It is believed that he hit the back of his head. He had no loss of consciousness. He developed a small scrape on his right hand. He was brought to the ER for further assessment. Patient has no complaints whatsoever. He is concerned about the potential [place] invasion at this point, but makes no complaints of chest pain, headache, neck pain, numbness tingling or weakness. Exam demonstrates well-appearing male at his normal intellectual baseline. No signs of trauma in head neck chest abdomen or pelvis. No concerning abnormalities. Because of the patient's age and risk factors though, we will get a CT scan of the head neck to rule out bleed or fracture. CT scan was ordered, no evidence of acute infarct or fracture. Patient remains at his hemodynamic and neurologic baseline. Patient stable for discharge back to facility. Discussed red flags which return. I have extensively reviewed the treatment plan and discharge instructions with the patient. I have addressed all patient concerns at this time. The patient was made aware of what symptoms to monitor for that would warrant a return to the emergency department. Discussed the plan with the patient, they demonstrate verbal understanding and agreement with our assessment and plan at this time. The documentation in this chart was dictated using [employer] dictation software. Please excuse any dictation errors. FINDINGS: BRAIN: There are no skull fractures nor fluid in the visualized paranasal sinuses. In the intracranial compartment there is abnormal asymmetric hypodensity in the right frontal lobe consistent with prior infarct. No mass effect nor shift of midline structures. Also evidence of previous infarct in the anterior aspect of the left occipital lobe. In the right middle cranial fossa there is some increased density peripherally. However, this is probably artifact and there is mild movement tear. CERVICAL SPINE: There is no evidence of fracture nor listhesis. No significant prevertebral soft tissue swelling. There is chronic disc space narrowing at C5-6 level as well as anterior osseous lipping at this level. Posterior bony ridging also noted at this level. Other disc spaces exhibit normal height. There are no obvious degenerative changes in the facet joints. There is no significant facet joint malalignment. No significant osseous lesions evident. 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 No skull fractures. No evidence of cervical spine fracture, malalignment, nor acute compromise of the cervical spinal canal. Chronic degenerative disc disease C5-6 level Quality:SDOH Health Related Social Needs: No Data to Display PFSH All Active Problems (Updated 04/10/24 @ 17:25 by Jagjit Duarte DO) Fall (Acute) Dementia (Chronic) Social History Smoking risk assessment performed?: No Details: Pt unable to answer above questions at this time 04/08/24 Do you feel safe at home: Yes Do you feel safe in your relationship?: Yes
[2024-04-10 17:24] VITALS: BP 174/53; PULSE 64; RESP 20; O2SAT 98
== END 2024-04-10 18:48 | disposition home or self-care (01) ==
LOC: ER 18:03
PROVIDERS: Emergency Provider Student in an Organized Health Care Education/Training Program; PCP Family Medicine
DX: S60.511A Abrasion of right hand, initial encounter (principal); E11.9 Type 2 diabetes mellitus without complications; F03.90 Unspecified dementia, unspecified severity, without behavioral disturbance, psychotic disturbance, mood disturbance, and anxiety; Z79.4 Long term (current) use of insulin; W19.XXXA Unspecified fall, initial encounter; Y92.098 Other place in other non-institutional residence as the place of occurrence of the external cause
CPT/HCPCS: 99284; 70450; 72125

== ENCOUNTER 2024-04-17 16:46 | Emergency (ER) | payer MEDICARE, MEDICAID, SELFPAY ==
[2024-04-17] VITALS (7 sets, daily range): BP systolic 133–145; BP diastolic 55–61; PULSE 63–80; RESP 12–18; TEMP 37.4; O2SAT 97–100
--- NOTE | 2024-04-17 17:00 | RT.EKG_ITS ---
APPROVED REPORT Exam: Resting ECG Reason for Exam: Reported bradycardia Patient Location: E HR:66 bpm ECG Measurements Heart Rate 66 AXIS WV 174 P 3 QRSd 91 QRS 11 QT 407 T 42 QTc 411 Conclusion Sinus rhythm, rate 66 PACs No interval abnormalities No STEMI No significant changes from priors
--- NOTE | 2024-04-17 17:48 | NUR.NOTE ---
Nursing Note: PT presents [facility] for increased level of confusion. On triage very strong smell of urine coming from the patient. It is seen that the patients pants and socks are saturated with urine. Upon undressing the patient I found that the patients clothing was so saturated, urine had dried over multiple times to the point the patients clothing was stuck to the skin. The patient was only wearing a pair of soiled sweat pants, No underwear or brief. In order to get the socks off of the patient I had to cut them off to prevent the further tearing of skin. PT bilateral lower legs are red, hot to the touch and covered in weeping sores. PT denies pain. Upon further undressing of the patient I found that the patients back side/upper thigh area skin breakdown has started. Small scab like wounds are seen. Cap refill less than 5 seconds on both feet. Pulses intact. MD in room at time of initial assessment and findings.
[2024-04-17 17:58] LABS: Abs Immature Grans 0.03 10^3/uL (0.0-0.06); Absolute Basophil Count 0.02 10^3/uL (0.0-0.2); Absolute Eosinophil Count 0.07 10^3/uL (0.0-0.7); Absolute Lymphocyte Count 1.02 10^3/uL (1.2-3.4); Absolute Monocyte Count 0.51 10^3/uL (0.1-0.8); Absolute Neutrophil Count 5.17 10^3/uL (1.2-6.7); Basophils % 0.3 %; HCT 37.1 % (40.0-50.0); HGB 12.6 g/dL (13.5-17.5); Immature Grans % 0.4 %; MCH 28.5 pg (27.0-33.0); MCV 84 fL (80-95); MPV 9.5 fL (8.0-11.0); Monocytes % 7.5 %; Neutrophils % 75.8 %; Platelet Count 309 10^3/uL (130-400); RBC 4.42 10^6/uL (4.36-5.78); RDW 12.9 % (11.8-14.1); RDW-SD 39.8 fL; WBC 6.82 10^3/uL (4.4-10.8)
[2024-04-17 18:01] LABS: ESR 21 mm/hr (0-20)
[2024-04-17 18:17] LABS: ALT 22 U/L (16-63); AST 21 U/L (15-37); Albumin 3.2 g/dL (3.4-5.0); Alkaline Phosphatase 114 U/L (46-116); Anion Gap 5.2 mmol/L (3-11); BUN 21 mg/dL (7-18); Bilirubin, Total 0.71 mg/dL (0.2-1.0); C-Reactive Protein 1.33 mg/dL (<or=0.5); CO2 33.8 mmol/L (21.0-32.0); CREATININE 1.4 mg/dL (0.70-1.30); Calcium 9.2 mg/dL (8.5-10.1); Chloride 99 mmol/L (98-107); Estimated GFR 52.09 (mL/min/1.73m2); Glucose 331 mg/dL (74-106); Potassium 4.2 mmol/L (3.5-5.1); Sodium 138 mmol/L (136-145); Total Protein 7.6 g/dL (6.4-8.2); Troponin I 8 ng/L (<or=76)
--- NOTE | 2024-04-17 18:53 | W.ED.GENAD ---
Discharge Plan Discharge Details Chief Complaint: GenMedical Clinical Impression: Bilateral cellulitis of lower leg, Dementia Primary Care Provider: Kat Blankensihp ED Provider: Sharyn Hall Home Meds and New Rx's Prescriptions: No Action aripiprazole [Abilify] 5 mg tablet 5 mg PO DAILY glucagon 1 mg kit 1 mg IM ONCE PRN dextrose [Glucose Gel] 40 % gel 15 g PO ONCE magnesium hydroxide [Milk of Magnesia] 400 mg/5 mL suspension 30 ml PO ONCE PRN polyethylene glycol 3350 [ClearLax] 17 gram/dose powder 17 g PO ONCE sodium phosphates 19-7 gram/118 mL enema 118 ml DE ONCE bisacodyl [Dulcolax (bisacodyl)] 10 mg suppository 10 mg DE DAILY PRN insulin glargine [Basaglar KwikPen U-100 Insulin] 100 unit/mL (3 mL) insulin pen 25 unit subcut DAILY insulin lispro [Admelog SoloStar U-100 Insulin] 100 unit/mL insulin pen 1 sliding scale dose subcut USEASDIRECTD Rx Instructions: SS before meals 200-249=3U, 250-299=5u,300-349=7U,350-400=9u,401-500=11u contact MD if glucose higher than 500. mirtazapine 30 mg tablet,disintegrating 30 mg PO QHS olanzapine 5 mg tablet 5 mg PO DAILY 30 Days Qty: 30 0RF HPI General Mode of arrival: EMS. Date/Time Provider Initiated Documentation: 04/17/24 17:04. Limitations to Documentation: no limitations. Information obtained by: patient. HPI Narrative: HPI: This is a 78-year-old male patient with a history of dementia, diabetes, residing at [facility] rehab. He was sent over today for increased combativeness over the last few days as well as a heart rate on vitals check of 40. EMS noted the patient to be significantly confused, though he had a reassuring heart rate and otherwise normal vital signs. The patient is reported by ELLE Mccabe to have been more combative and frustrated with cares than typical, has been refusing toileting, and she has noticed that he has worsening of the redness and swelling in his bilateral lower extremities. He is not currently on antibiotics for cellulitis. No reported falls, no recent fevers, no other report from the staff. The patient himself states that he feels quite well, and is without acute complaint. Exam: Gen: Awake and alert, in no apparent distress HEENT: Non-icteric sclera, scalp atraumatic, PERRL. The patient does have red fruit punch in his mustache. Neck: Supple Lungs: No apparent respiratory distress, normal respiratory effort. CV: Appears well perfused, strong distal pulses, heart with regular rate and rhythm Abdomen: Non-distended, soft MSK: Moves 4 extremities without apparent limitation in ROM. The patient has redness, induration, and swelling of the bilateral lower extremities, right greater than left, with several scabs and wounds/ulcers of varying ages Skin: Visualized skin without rashes, cyanosis except as noted above. Neuro: No obvious focal deficits or facial asymmetry. Speaks in full, clear sentences. He is awake and alert but oriented to person only (knows he it is in a hospital, is not sure which one) MDM: This is a 78-year-old male patient presenting for evaluation of altered mental status. Regarding the heart rate of 40, certainly considered arrhythmia and transient bradycardia, though the patient has not been bradycardic for EMS or on this provider's examination. Regarding his confusion and increased combativeness differentials include but are not limited to infection including UTI, cellulitis. No shortness of breath, cough, or concerning respiratory changes or hypoxia to suggest pneumonia. No vomiting or abdominal tenderness to suggest intra-abdominal pathology. Certainly considered metabolic electrolyte derangements, kidney injury. Considered ACS and arrhythmia. No reported falls or trauma to suggest intracranial hemorrhage, no meningismus or fever to suggest meningitis or encephalitis. ED Course: We obtained a broad laboratory workup, which shows no leukocytosis, does demonstrate a mild anemia to 12.6 but no thrombocytopenia. ESR and CRP are minimally elevated. Chemistry panel demonstrates no significant electrolyte derangements, does show a chronic appearing elevation to the bicarb of 33, a small elevation in BUN and creatinine to 21 and 1.4 respectively. Glucose is elevated to 331, no evidence of liver dysfunction and the troponin is low. The patient has remained fever free, and is without tachycardia, and I have a low concern for sepsis or bacteremia. We did perform a bladder scan, which showed 750 cc of urine. The patient made an attempt to void, and was able to successfully with a postvoid residual of 150 (has a history at baseline of BPH and prostate issues, unclear what baseline is for this patient. Shortly after this procedure, the patient began to complain of left lower quadrant tenderness, and for this reason we will obtain a CT abdomen pelvis. UA was noninfectious, with glucosuria. Signed out care of this patient to the oncoming provider prior to completion of CT scans. Anticipate that if no acute findings patient will be appropriate for discharge to the facility on oral antibiotics. Sharyn Hall MD Related Data Home Medications ?Medication ?Instructions ?Recorded ?Confirmed bisacodyl 10 mg rectal suppository 10 mg DE DAILY PRN 04/08/24 04/17/24 (Dulcolax (bisacodyl)) insulin glargine 100 unit/mL (3 25 unit subcut DAILY 04/08/24 04/17/24 mL) subcutaneous pen (Basaglar KwikPen U-100 Insulin) insulin lispro 100 unit/mL 1 sliding scale dose subcut 04/08/24 04/17/24 [facility] Solo[facility] USEASDIRECTD U-100 Insulin lispro) mirtazapine 30 mg disintegrating 30 mg PO QHS 04/08/24 04/17/24 tablet olanzapine 5 mg tablet 5 mg PO DAILY agitation 30 days 04/08/24 04/17/24 #30 tabs aripiprazole 5 mg tablet (Abilify) 5 mg PO DAILY 04/17/24 04/17/24 dextrose 40 % oral gel (Glucose 15 g PO ONCE 04/17/24 04/17/24 Gel) glucagon 1 mg injection kit 1 mg IM ONCE PRN 04/17/24 04/17/24 magnesium hydroxide 400 mg/5 mL 30 ml PO ONCE PRN 04/17/24 04/17/24 oral suspension (Milk of Magnesia) polyethylene glycol 3350 17 17 g PO ONCE 04/17/24 04/17/24 gram/dose oral powder (ClearLax) sodium phosphates 19 gram-7 118 ml DE ONCE 04/17/24 04/17/24 gram/118 mL enema Previous Rx's ?Medication ?Instructions ?Recorded olanzapine 5 mg tablet 5 mg PO DAILY agitation 30 days 04/08/24 #30 tabs Allergies Allergy/AdvReac Type Severity Reaction Status Date / Time diltiazem Allergy Unknown Unknown Verified 04/17/24 16:52 ezetimibe (From Vytorin) Allergy Unknown Unknown Verified 04/17/24 16:52 pioglitazone (From Actos) Allergy Unknown Unknown Verified 04/17/24 16:52 pravastatin Allergy Unknown Unknown Verified 04/17/24 16:52 simvastatin (From Vytorin) Allergy Unknown Unknown Verified 04/17/24 16:52 General Stated Complaint: GenMedical HEIDI: 3 Course Vital Signs Vital signs: Vital Signs Temperature 37.4 C 04/17/24 16:49 Pulse 80 04/17/24 16:49 Respiratory Rate 18 04/17/24 16:49 Blood Pressure 145/60 H 04/17/24 16:49 Pulse Oximetry 100 04/17/24 16:49 Temperature 37.4 C 04/17/24 16:49 Temperature Source Temporal Artery Scan 04/17/24 16:49 Pulse 80 04/17/24 16:49 Respiratory Rate 18 04/17/24 17:17 Respiratory Effort Normal, Non-Labored 04/17/24 17:17 Respiratory Depth Normal 04/17/24 17:17 Respiratory Pattern Normal 04/17/24 17:17 Blood Pressure 145/60 H 04/17/24 16:49 Blood Pressure Position Sitting 04/17/24 16:49 Pulse Oximetry 100 04/17/24 16:49 Oxygen Delivery Method Room Air 04/17/24 16:49 Oxygen Flow Rate 0 04/17/24 16:49 Pain Level 0 04/17/24 16:49 Lab/Test Results Lab/Test Results: 04/17/24 18:13 Blood Blood Culture - Pending 04/17/24 17:48 Blood Blood Culture - Pending Laboratory Tests Range/Units 04/17/24 04/17/24 04/17/24 17:48 18:04 20:04 WBC (4.4-10.8) 10^3/uL 6.82 RBC (4.36-5.78) 10^6/uL 4.42 Hgb (13.5-17.5) g/dL 12.6 L Hct (40.0-50.0) % 37.1 L MCV (80-95) fL 84 MCH (27.0-33.0) pg 28.5 MCHC (32.0-36.0) % 34.0 RDW (11.8-14.1) % 12.9 Plt Count (130-400) 10^3/uL 309 MPV (8.0-11.0) fL 9.5 Immature Gran % % 0.4 Neutrophils % % 75.8 Lymphocytes % % 15.0 Monocytes % % 7.5 Eosinophils % % 1.0 Basophils % % 0.3 Nucleated RBC % (0.0-0.3) % 0.0 Absolute Neutrophils (1.2-6.7) 10^3/uL 5.17 Absolute Lymphocytes (1.2-3.4) 10^3/uL 1.02 L Absolute Monocytes (0.1-0.8) 10^3/uL 0.51 Absolute Eosinophils (0.0-0.7) 10^3/uL 0.07 Absolute Basophils (0.0-0.2) 10^3/uL 0.02 ESR (0-20) mm/hr 21 H Sodium (136-145) mmol/L 138 Potassium (3.5-5.1) mmol/L 4.2 Chloride (98-107) mmol/L 99 Carbon Dioxide (21.0-32.0) mmol/L 33.8 H Anion Gap (3-11) mmol/L 5.2 BUN (7-18) mg/dL 21 H Creatinine (0.70-1.30) mg/dL 1.4 H Est GFR (CKD-EPI 2020) (mL/min/1.73m2) 52.09 Glucose (74-106) mg/dL 331 H Calcium (8.5-10.1) mg/dL 9.2 Magnesium (1.8-2.4) mg/dL 2.0 Total Bilirubin (0.2-1.0) mg/dL 0.71 AST (15-37) U/L 21 ALT (16-63) U/L 22 Alkaline Phosphatase (46-116) U/L 114 Troponin I (<or=76) ng/L 8 Cancelled Cancelled C-Reactive Protein (<or=0.5) mg/dL 1.33 H Total Protein (6.4-8.2) g/dL 7.6 Albumin (3.4-5.0) g/dL 3.2 L Medical Decision Making Quality:SDOH Health Related Social Needs: No Data to Display PFSH All Active Problems (Updated 04/17/24 @ 20:06 by Sharyn Hall MD) Bilateral cellulitis of lower leg (Acute) Fall (Acute) Dementia (Chronic) Social History Smoking risk assessment performed?: No Alcohol Intake: never Drug use: Never Substance use type: does not use Details: Pt unable to answer above questions at this time 04/17/24 Housing: detention Do you feel safe at home: Yes Do you feel safe in your relationship?: Yes POCUS Exam (ED) Limited Vascular Exam DATE OF EXAM: 04/17/24 TIME OF EXAM: 17:00 PROVIDER THAT PERFORMED THE STUDY: Sharyn Hall IS THIS A REPEAT EXAM DURING THIS ENCOUNTER: No Vascular Exam: Right upper extremity REASON FOR EXAM: Other indication: IV access Exam complete INCIDENTAL FINDINGS: The antecubital fossa was visualized and a compressible vein was identified. Under ultrasound guidance, a 20-gauge needle was advanced into the lumen of the vein, with dark red blood return appreciated in the chamber. A catheter was advanced easily, laboratory studies and cultures obtained and the dressing secured. This was performed under typical sterile conditions with ultrasound probe cover. Procedure performed by Dr. Sharyn Hall
[2024-04-17 19:56] LABS: Bilirubin Negative (Negative); Blood Negative (Negative); Clarity Clear (Clear); Glucose >=1000 mg/dL (Negative); Ketones Negative (Negative); Leukocyte Esterase Negative (Negative); Nitrite Negative (Negative); Specific Gravity 1.015 (1.005-1.025); Urobilinogen 0.2 mg/dL (Up to 0.2); pH 5.5 (5-8)
--- NOTE | 2024-04-17 20:00 | DI.CT_ITS ---
Exam(s) CT ABDOMEN PELVIS W EXAM: CT ABDOMEN PELVIS W CLINICAL HISTORY: LLQ abd pain. TECHNIQUE: Imaging Protocol: Axial computed tomography images with coronal and sagittal reformatted images were created and reviewed CONTRAST MATERIAL: Intravenous: Omnipaque 350 Contrast volume:75 ml Oral: no COMPARISON: No exams were available for comparison FINDINGS: ABDOMEN and PELVIS: Lung Bases: No acute findings. Liver: Normal density. No suspicious mass. Gallbladder and biliary tract: No radiodense calculus. No biliary dilation. Pancreas: Normal density. No abnormal calcifications or inflammatory process. No evidence of mass. Spleen: Normal. Kidneys: Normal size, contour and axis. No radiodense stones. No obstructive uropathy. No suspicious masses seen. Adrenal glands: No masses seen. Vasculature: Abdominal aorta non-dilated. Atherosclerotic changes. Soft tissues: Unremarkable. Bladder: Diffuse prominent wall thickening. No calculi.No focal mass. Bowel: No obstruction. No bowel wall thickening. Large amount of stool, particularly in the rectum . Appendix normal. Peritoneal cavity: No ascites. No focal collection. No mesenteric inflammatory response. No free air . Bones: Unremarkable for age. Reproductive organs: Enlarged prostate, impressing on the base of the bladder. Lymph nodes: No pathologically enlarged lymph nodes. IMPRESSION:: No acute abnormality in the abdomen or pelvis. Large quantity of fecal material some particularly in the rectum. Enlarged prostate. Prominent bladder wall thickening consistent with outlet obstruction. RADIATION DOSE DELIVERED: 378.81mGy.cm Total DLP DATA REPOSITORY: All CT scans at this facility are submitted to the National Radiology Data Registry (NRDR) Dose Index Registry (DIR) with the [employer] (ACR). RADIATION OPTIMIZATION: All CT scans at this facility use at least one of these dose optimization te chniques: automated exposure control; mA and/or kV adjustment per patient size (includes targeted exa ms where dose is matched to clinical indication); or iterative reconstruction.
[2024-04-17 20:13] LABS: Bacteria Negative HPF (Negative); C & S Indicated? No; Casts Negative LPF (Negative); Crystals Negative HPF (Negative); Epithelial Cells Moderate HPF (Negative); Mucus Negative (Negative); RBC 0-2 HPF (0-2); WBC 0-2 HPF (0-5)
[2024-04-17] MEDS: Normal Saline - Diluent 50 ML VIAL IJ (20:22)
[2024-04-17] MEDS: Omnipaque 350 MG/ML 100 ML BTL IJ (20:23)
--- NOTE | 2024-04-17 20:47 | DI.VRAD_ITS ---
PROCEDURE INFORMATION: Exam: CT Abdomen And Pelvis With Contrast Exam date and time: 04/17/2024 20:19 Age: 78 years old Clinical indication: Other: Llq abd pain TECHNIQUE: Imaging protocol: Computed tomography of the abdomen and pelvis with contrast. Contrast material: 350; Contrast volume: 75 ml; Contrast route: INTRAVENOUS (IV); COMPARISON: No relevant prior studies available. FINDINGS: Liver: Fatty liver with no mass lesions. Gallbladder and biliary ducts: No calcified stones. No gross ductal dilation. Pancreas: No ductal dilation. No mass . Spleen: No splenomegaly or suspicious lesions. Adrenal glands: No suspicious mass. Kidneys and ureters: No hydronephrosis. No masses. Stomach and bowel: Moderate colonic stool burden. Scattered colonic diverticula without inflammation. No colitis or enteritis. No obstruction. Large amount of stool in the rectum , suspected minor rectal wall thickening however no surrounding edema. Appendix: No evidence of appendicitis. Intraperitoneal space: No free air. No significant fluid collection. Vasculature: No abdominal aortic aneurysm. Lymph nodes: No significantly enlarged lymph nodes. Urinary bladder: Moderate probable chronic outlet obstructive changes of the urinary bladder. Reproductive: Moderate prostatic enlargement. Bones/joints: Chronic bony changes with no acute fracture. Soft tissues: No suspicious lesions. 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 Additional findings as above. Dictated and Authenticated by: Liana Hinton MD. Ordering:LUANA Hampton MD
--- NOTE | 2024-04-17 20:56 | ED.PROG_ITS ---
Date of service: 04/17/24 Time of Service: 21:00 Medical Decision Making Patient signed out to me pending CT of the abdomen pelvis. He had been sent to the ED from [facility] for increased behavioral problems. Workup pretty unremarkable though he does have evidence of cellulitis bilateral lower extremities. No marely dence of UTI but prior to discharge began to complain of abdominal pain. This prompted ordering of the CT abdomen pelvis. Per preliminary radiology read there is a large fecal load as well as large amount of stool present in the rectum. Rectal exam was performed by me with nurse present. There is soft stool present but no impaction. Patient's abdominal exam is benign. Patient has been cooperative here and has no complaints. Will be started on cephalexin for his cellulitis. Will need to have attention to bowel management per senior care guidelines. I note that he is ordered for as needed bisacodyl, milk of magnesia, and receives MiraLAX daily. He retransferred back to his [facility]. Return precautions provided. Discharge Plan Disposition [facility] Disposition[facility] Condition: Good Discharge Details Clinical Impression: Bilateral cellulitis of lower leg, Dementia, Constipation Primary Care Provider: Kat Blankenship ED Provider: Fitz Mansfield [facility] ([facility] and New Rx's Prescriptions: New cephalexin 500 mg capsule 500 mg PO TID Qty: 20 0RF Continued aripiprazole [Abilify] 5 mg tablet 5 mg PO DAILY glucagon 1 mg kit 1 mg IM ONCE PRN dextrose [Glucose Gel] 40 % gel 15 g PO ONCE magnesium hydroxide [Milk of Magnesia] 400 mg/5 mL suspension 30 ml PO ONCE PRN polyethylene glycol 3350 [ClearLax] 17 gram/dose powder 17 g PO ONCE sodium phosphates 19-7 gram/118 mL enema 118 ml NJ ONCE bisacodyl [Dulcolax (bisacodyl)] 10 mg suppository 10 mg NJ DAILY PRN insulin glargine [Basaglar KwikPen U-100 Insulin] 100 unit/mL (3 mL) insulin pen 25 unit subcut DAILY insulin lispro [Admelog SoloStar U-100 Insulin] 100 unit/mL insulin pen 1 sliding scale dose subcut USEASDIRECTD Rx Instructions: SS before meals 200-249=3U, 250-299=5u,300-349=7U,350-400=9u,401-500=11u contact MD if glucose higher than 500. mirtazapine 30 mg tablet,disintegrating 30 mg PO QHS olanzapine 5 mg tablet 5 mg PO DAILY 30 Days Qty: 30 0RF Discharge Instructions Instructions: Cellulitis (Skin Infection), Adult ED, Constipation, Adult ED Additional Instructions: Your workup in the emergency department was overall reassuring. You are felt to have mild cellulitis to your legs for which you should take cephalexin as prescribed for 1 week. You have significant constipation seen on your CAT scan and attention to bowel regimen over the next week will be important as well. Drink plenty fluids to be hydrated. Follow-up with primary care next week. Return to ED for any persistent fevers, mental status change, worsening abdominal pain, other concerns. Discharge Data Discharge Date/Time-TO BE ENTERED AT DEPARTURE: 04/17/24 21:11
[2024-04-17] MEDS: Cephalexin 500 MG CAP PO (21:11)
== END 2024-04-17 21:11 | disposition skilled nursing facility (03) ==
PROVIDERS: Emergency Medicine; Emergency Provider Emergency Medicine; PCP Family Medicine
DX: L03.116 Cellulitis of left lower limb (principal); L03.115 Cellulitis of right lower limb; F03.90 Unspecified dementia, unspecified severity, without behavioral disturbance, psychotic disturbance, mood disturbance, and anxiety; K59.00 Constipation, unspecified; E11.9 Type 2 diabetes mellitus without complications; I10 Essential (primary) hypertension; R10.32 Left lower quadrant pain
CPT/HCPCS: 00123; 36415; 36573; 51798; 80053; 85652; 87040; 93005; 93971; 99285; 74177; 81003; 81015; 83735; 84484; 85025; 86140; 93010; 99284; J3490